=== PATIENT | female | born 1965 | race Caucasian/White ===

== ENCOUNTER 2017-04-03 11:50 | Emergency (ER) | payer MEDICAID | END 2017-04-03 15:50 | disposition home or self-care (01) | LOC: D.ER 11:50 | DX: M54.16 Radiculopathy, lumbar region (principal); E11.9 Type 2 diabetes mellitus without complications; Z79.4 Long term (current) use of insulin; I25.10 Atherosclerotic heart disease of native coronary artery without angina pectoris ==